=== PATIENT | female | born 1940 | race Caucasian/White ===

== ENCOUNTER 2023-09-24 11:09 | Emergency (ER) | payer MEDICARE, SELFPAY ==
[2023-09-24 11:10] VITALS: BP 93/43; PULSE 85; RESP 18; TEMP 36.2; O2SAT 94
--- NOTE | 2023-09-24 11:21 | ED.GENADULT ---
HPI - General Adult General Chief complaint: Allergic Reaction Stated complaint: Facial Swelling/ Shortness of Breath Source: patient, RN notes reviewed and old records reviewed Mode of arrival: ambulatory Limitations: no limitations History of Present Illness HPI narrative: 82-year-old female presents to Express Care with complaint patient's lower lip swelling, shortness of breath that started this a.m.. Patient took Benadryl 25 mg. Patient stated had this happen in May and symptoms resolved on their MD complaint: angioedema Onset (ago): hour(s) (3-4) Related Data Home Medications Medication Instructions Recorded Confirmed amoxicillin 09/24/23 atorvastatin 80 mg tablet mg 09/24/23 dicyclomine 10 mg capsule mg 09/24/23 hydrochlorothiazide 12.5 mg tablet mg 09/24/23 lisinopril 20 mg tablet mg 09/24/23 metoprolol tartrate 25 mg tablet mg 09/24/23 umeclidinium 62.5 mcg-vilanterol inhalation 09/24/23 25 mcg/actuation powdr for inhalation (Anoro Ellipta) Allergies Allergy/AdvReac Type Severity Reaction Status Date / Time No Known Allergies Allergy Unverified 09/24/23 11:27 Review of Systems Constitutional: Constitutional: Reports no additional constitutional complaints Eyes: Eyes: Reports no additional eye complaints ENT: Reports as per HPI and Reports lip swelling Cardiovascular: Cardiovascular: Reports no additional cardiovascular complaints Respiratory: Respiratory: Reports no additional respiratory complaints and Reports dyspnea Neurologic: Reports system reviewed and no additional complaints, except as documented PMFSH Comments At the time of my signature, I reviewed and agree with the nursing past medical, surgical, social, and family history. There is no relevant family history pertinent to the patient complaint. Exam Const: General: cooperative, healthy appearing, no acute distress and well nourished Nutritional Appearance: well nourished Orientation/consciousness: patient oriented x3 Limitations: no limitations HENMT: Head: normal to inspection Ears: external ears normal, TM's normal bilaterally, mastoids normal and Abnormal EAC present Face/Nose/Sinus: normal facial exam Face and sinus: normal facial exam and edema Mouth: Yes tongue normal, No drooling, Yes lip abnormal ( lower lip edema) and No mouth trauma Throat: posterior oropharynx normal, tonsils normal, uvula midline and no uvular edema Eyes: General: appearance normal, both eyes and all related structures Sclera: sclerae normal Pupils: Equal, round and reactive pupils present Resp: Effort & Inspection: normal respiratory effort, able to speak in complete sentences, no audible wheezes, no cough, no respiratory distress and no retractions Auscultation: clear to auscultation bilaterally, no crackles, no rales, no rhonchi and no wheezes Cardio: Rate: regular rate Rhythm: regular rhythm Skin: General skin exam: normal color and no rashes or lesions noted Neuro: General: patient oriented x3 Cranial nerves: Yes Equal, round and reactive pupils present Psych: Appearance: grossly normal Course Course Emergency Course: Some parts of this dictation were generated by voice recognition software and may contain typographical and/or grammatical inaccuracies. Level of Care: Express Care Visit Vital Signs Vital signs: Vital Signs Temperature 97.1 F L 09/24/23 11:10 Pulse Rate 85 09/24/23 11:10 Respiratory Rate 18 09/24/23 11:10 Blood Pressure 93/43 L 09/24/23 11:10 Pulse Oximetry 94 09/24/23 11:10 Oxygen Delivery Room Air 09/24/23 11:10 Temperature 97.1 F L 09/24/23 11:10 Pulse Rate 85 09/24/23 11:10 Respiratory Rate 18 09/24/23 11:10 Blood Pressure 93/43 L 09/24/23 11:10 Pulse Oximetry 94 09/24/23 11:10 Oxygen Delivery Room Air 09/24/23 11:10 Reviewed Medical Decision Making MDM Narrative Medical decision making narrative: patient's swelling has improved follow
[2023-09-24] MEDS: predniSONE 20 MG TABLET 40 MG PO (11:35)
[2023-09-24] MEDS: FAMOTIDINE 20 MG TABLET 40 MG PO (11:36)
--- NOTE | 2023-09-24 11:49 | PC.NURSE ---
was taken to room 1, son at bedside. stated had stopped bp med on tuesday dt bp being low. said stopped lisinopril.
== END 2023-09-24 12:30 | disposition home or self-care (01) ==
PROVIDERS: Emergency Provider Registered Nurse; PCP Internal Medicine
DX: R06.02 Shortness of breath (principal); R22.0 Localized swelling, mass and lump, head; T78.40XA Allergy, unspecified, initial encounter; I10 Essential (primary) hypertension
CPT/HCPCS: 99213; A9270; G0463; J7512